=== PATIENT | male | born 1955 | race Asian ===

== ENCOUNTER 2021-05-21 01:10 | Inpatient (IN) | payer MEDICAID ==
[~2021-05-21] VITALS: Ht 168.9 cm; Wt 68.1 kg
[2021-05-21 02:44] LABS: BASOPHILS % (AUTO) 0.6 % (0.0-2.0); EOSINOPHILS % (AUTO) 0.7 % (1.0-6.0); HEMATOCRIT 41.1 % (41-53); HEMOGLOBIN 13.9 g/dL (13.5-17.5); LYMPHOCYTES # (AUTO) 1.5 K/uL (1.0-4.8); LYMPHOCYTES % (AUTO) 14.7 % (22.0-44.0); MEAN CORPUSCULAR HEMOGLOBIN 31.2 pg (26.0-34.0); MEAN CORPUSCULAR HGB CONC 33.9 G/dL (31.0-37.0); MEAN CORPUSCULAR VOLUME 92 fL (80-100); MONOCYTES # (AUTO) 0.5 K/uL (0.1-1.0); MONOCYTES % (AUTO) 4.9 % (2.0-9.0); NEUTROPHILS # (AUTO) 8.1 K/uL (1.8-7.7); NEUTROPHILS % (AUTO) 79.1 % (40.0-70.0); PLATELET COUNT (AUTO) 108 K/uL (150-450); RED BLOOD CELL COUNT(AUTO) 4.46 MIL/uL (4.50-5.90); RED CELL DISTRIBUTION WIDTH 14.3 % (11.5-14.5)
[2021-05-21 03:00] LABS: ANION GAP 11 mmol/L (8-16); CARBON DIOXIDE 25 mmol/L (22-29); CHLORIDE 96 mmol/L (98-107); CREATININE 0.53 mg/dL (0.60-1.30); GLUCOSE,RANDOM 137 mg/dL (70-110); POTASSIUM 5.5 mmol/L (3.5-5.1); SODIUM SERUM 132 mmol/L (136-145); UREA NITROGEN, BLOOD 16 mg/dL (7-18)
[2021-05-21 03:06] LABS: ALANINE AMINOTRANSFERASE 79 U/L (12-78); ALKALINE PHOSPHATASE 121 U/L (46-116); ASPARTATE AMINOTRANSFERASE 92 U/L (15-37); BILIRUBIN,TOTAL 1.4 mg/dL (0.1-1.0); TOTAL PROTEIN, SERUM 8.4 g/dL (6.4-8.2)
[2021-05-21] MEDS ORDERED: SODIUM CHLORIDE 0.9% 1,000 ML IV ONE ×2 (03:15→05:15)
[2021-05-21] MEDS ORDERED: ONDANSETRON HCL 4 MG/2 ML VIAL IVP ONE ×2 (03:15→22:21)
[2021-05-21] MEDS ORDERED: MORPHINE SULFATE 4 MG/ML SYRINGE IVP ONE (03:15)
[2021-05-21 03:18] LABS: GLOMERULAR FILTR. RATE CALC > 60 mL/min (>60)
[2021-05-21 03:31] LABS: ALBUMIN 3.3 g/dL (3.4-5.0); LIPASE 361 U/L (73-393)
[2021-05-21] MEDS ORDERED: SODIUM CHLORIDE 0.9% 100 ML ONE (04:03)
[2021-05-21] MEDS ORDERED: IOHEXOL 350 MG/ML 100 ML VIAL ONE (04:03)
[2021-05-21] MEDS ORDERED: PIPERACILLIN/TAZO 3.375 GM/D5W 50 ML IV ONE (05:04)
[2021-05-21] MEDS ORDERED: ONDANSETRON HCL 4 MG/2 ML VIAL IVP PRN ×2 (05:15→10:15)
[2021-05-21] MEDS ORDERED: 0.9% SODIUM CHLORIDE 10 ML SYRINGE IVP PRN (05:15)
[2021-05-21] MEDS ORDERED: HYDROmorphone 2 MG/ML VIAL IVP ONE (05:15)
[2021-05-21] MEDS ORDERED: HYDROmorphone 2 MG/ML VIAL IVP PRN ×2 (05:15→11:45)
[2021-05-21 05:33] LABS: APPEARANCE,URINE CLEAR (CLEAR); BILIRUBIN,URINE NEGATIVE (NEGATIVE); GLUCOSE, URINE (UA) NEGATIVE (NEGATIVE); KETONES,URINE NEGATIVE (NEGATIVE); LEUKOCYTE ESTERASE ,URINE NEGATIVE (NEGATIVE); NITRATE,URINE NEGATIVE (NEGATIVE); OCCULT BLOOD,URINE NEGATIVE (NEGATIVE); PROTEIN,URINE NEGATIVE (NEGATIVE); UROBILINOGEN,URINE 0.2 mg/dL (<=1.0)
[2021-05-21 05:35] LABS: BACTERIA,URINE Rare /HPF (None Seen); RBC,URINE None Seen /HPF (0-2); WBC,URINE 0-2 /HPF (0-5)
[2021-05-21] MEDS ORDERED: PIPERACILLIN/TAZO 3.375 GM/D5W 50 ML IV SCH (06:00)
[2021-05-21] MEDS ORDERED: HYDROCHLOROTHIAZIDE 25 MG TABLET PO ONE (07:00)
[2021-05-21] MEDS ORDERED: ALLO-45 PO (08:45)
[2021-05-21] MEDS ORDERED: ATOR10TA84 PO (08:45)
[2021-05-21] MEDS ORDERED: TELM1TAB31 PO (08:45)
[2021-05-21] MEDS ORDERED: VITA-328 PO (08:45)
[2021-05-21] MEDS ORDERED: LOSA-30 PO (08:45)
[2021-05-21] MEDS ORDERED: COLC0.6T73 PO (08:45)
[2021-05-21 08:52] LABS: COVID AG,FIA SOURCE NASOPHARYNGEAL
[2021-05-21] MEDS ORDERED: MORPHINE SULFATE 2 MG/ML SYRINGE IVP PRN (10:15)
[2021-05-21] MEDS ORDERED: LABETALOL HCL 5 MG/ML 20 ML VIAL IVP PRN (10:15)
[2021-05-21] MEDS ORDERED: MAGNESIUM HYDROXIDE SUSPENSION 30 ML UDCUP PO PRN (10:15)
[2021-05-21] MEDS ORDERED: ACETAMINOPHEN 325 MG TABLET PO PRN (10:15)
[2021-05-21] MEDS ORDERED: ZOLPIDEM TARTRATE 5 MG TABLET PO PRN (10:15)
[2021-05-21] MEDS ORDERED: BISACODYL 10 MG RECTAL RECTAL SUPPOSITORY PR PRN (10:15)
[2021-05-21] MEDS ORDERED: HYDROCODONE/ACETAMINOPHEN 5-325 MG TABLET PO PRN (10:15)
[2021-05-21] MEDS ORDERED: IOHEXOL 240 MG/ML 20 ML VIAL ONE (10:47)
[2021-05-21] MEDS ORDERED: BUPIVACAINE 0.25%/EPI 1:200,000/PF 10 ML VIAL ONE ×2 (10:48→10:53)
[2021-05-21] MEDS ORDERED: BUPIVACAINE 0.25%/EPI 1:200,000/PF 30 ML VIAL IM ONE (11:15)
[2021-05-21] MEDS ORDERED: FentaNYL CITRATE PF 100 MCG/2 ML VIAL IVP PRN (11:45)
[2021-05-21] MEDS ORDERED: SUGAMMADEX SODIUM 200 MG/2 ML VIAL IVP ONE (11:53)
[2021-05-21] MEDS: PIPERACILLIN/TAZO 3.375 GM/D5W 50 ML IV SCH ×2 (12:00→23:36)
[2021-05-21] MEDS ORDERED: SODIUM CHLORIDE 0.9% 1,000 ML ONE ×2 (12:02→13:04)
[2021-05-21] MEDS ORDERED: OxyCODONE HCL 5 MG IR TABLET PO PRN (13:30)
[2021-05-21 15:06] VITALS: BP 163/89
[2021-05-21] MEDS ORDERED: HEPARIN SODIUM,PORCINE 5,000 UNITS/ML VIAL SQ SCH (16:00)
[2021-05-21] MEDS: ACETAMINOPHEN 500 MG TABLET PO SCH ×2 (16:06→21:33)
[2021-05-21] MEDS: OXYGEN THERAPY IH SCH (20:00)
[2021-05-21 20:37] VITALS: BP 129/69
[2021-05-21] MEDS: DOCUSATE SODIUM 100 MG CAPSULE PO SCH (21:32)
[2021-05-21] MEDS ORDERED: DEXAMETHASONE SOD PHOS 4 MG/ML VIAL IVP ONE (22:21)
[2021-05-21] MEDS ORDERED: LIDOCAINE/PF 2% 5 ML VIAL IM ONE (22:21)
[2021-05-21] MEDS ORDERED: PROPOFOL 1% 20 ML VIAL IVP ONE (22:21)
[2021-05-21] MEDS ORDERED: ROCURONIUM BROMIDE 10 MG/ML 5 ML VIAL IVP ONE (22:21)
[2021-05-22 05:01] VITALS: BP 147/89
[2021-05-22] MEDS: PIPERACILLIN/TAZO 3.375 GM/D5W 50 ML IV SCH ×3 (05:33→18:29)
[2021-05-22] MEDS ORDERED: INFLUENZA VIRUS VACCINE QVS 2021-22 (6MO+)/PF 60 MCG/0.5 ML SYRINGE IM. ONE (05:45)
[2021-05-22 07:28] VITALS: BP 126/71
[2021-05-22] MEDS: OXYGEN THERAPY IH SCH ×2 (08:00→20:00)
[2021-05-22 08:07] LABS: ALANINE AMINOTRANSFERASE 144 U/L (12-78); ALBUMIN 2.7 g/dL (3.4-5.0); ALKALINE PHOSPHATASE 101 U/L (46-116); ANION GAP 6 mmol/L (8-16); ASPARTATE AMINOTRANSFERASE 97 U/L (15-37); BILIRUBIN,TOTAL 2.9 mg/dL (0.1-1.0); CALCIUM, TOTAL 7.8 mg/dL (8.8-10.5); CARBON DIOXIDE 26 mmol/L (22-29); CHLORIDE 104 mmol/L (98-107); CREATININE 1.16 mg/dL (0.60-1.30); GLOMERULAR FILTR. RATE CALC > 60 mL/min (>60); GLUCOSE,RANDOM 121 mg/dL (70-110); POTASSIUM 3.5 mmol/L (3.5-5.1); SODIUM SERUM 136 mmol/L (136-145); TOTAL PROTEIN, SERUM 6.7 g/dL (6.4-8.2); UREA NITROGEN, BLOOD 14 mg/dL (7-18)
[2021-05-22] MEDS: ALLOPURINOL 300 MG TABLET PO SCH (08:49)
[2021-05-22] MEDS: DOCUSATE SODIUM 100 MG CAPSULE PO SCH ×2 (08:49→20:07)
[2021-05-22] MEDS: TELMISARTAN 40 MG TABLET PO SCH (08:49)
[2021-05-22] MEDS: PANTOPRAZOLE SODIUM 40 MG DR TABLET PO SCH (08:50)
[2021-05-22] MEDS: ACETAMINOPHEN 500 MG TABLET PO SCH ×3 (08:50→20:08)
[2021-05-22] MEDS: HYDROCHLOROTHIAZIDE 25 MG TABLET PO SCH (08:50)
[2021-05-22] MEDS: ATORVASTATIN CALCIUM 10 MG TABLET PO SCH (08:50)
[2021-05-22] MEDS ORDERED: [UNRECOGNIZED DRUG - OTHER] PO SCH (09:00)
[2021-05-22 09:13] LABS: BASOPHILS % (AUTO) 0.2 % (0.0-2.0); EOSINOPHILS % (AUTO) 0 % (1.0-6.0); HEMATOCRIT 38.1 % (41-53); HEMOGLOBIN 12.9 g/dL (13.5-17.5); LYMPHOCYTES # (AUTO) 1.8 K/uL (1.0-4.8); LYMPHOCYTES % (AUTO) 13.4 % (22.0-44.0); MEAN CORPUSCULAR HEMOGLOBIN 30.8 pg (26.0-34.0); MEAN CORPUSCULAR HGB CONC 33.9 G/dL (31.0-37.0); MEAN CORPUSCULAR VOLUME 91 fL (80-100); MONOCYTES # (AUTO) 0.8 K/uL (0.1-1.0); MONOCYTES % (AUTO) 5.9 % (2.0-9.0); NEUTROPHILS % (AUTO) 80.5 % (40.0-70.0); PLATELET COUNT (AUTO) 216 K/uL (150-450); RED BLOOD CELL COUNT(AUTO) 4.19 MIL/uL (4.50-5.90); RED CELL DISTRIBUTION WIDTH 14.1 % (11.5-14.5)
[2021-05-22] MEDS ORDERED: SODIUM CHLORIDE 0.9% 250 ML IV ONE (11:16)
[2021-05-22 16:00] VITALS: BP 157/64
[2021-05-22 21:12] VITALS: BP 141/77
[2021-05-23] MEDS: PIPERACILLIN/TAZO 3.375 GM/D5W 50 ML IV SCH ×5 (00:17→23:05)
[2021-05-23 05:36] VITALS: BP 142/78
[2021-05-23 06:53] LABS: BASOPHILS % (AUTO) 0.5 % (0.0-2.0); EOSINOPHILS % (AUTO) 1.3 % (1.0-6.0); HEMATOCRIT 35.9 % (41-53); HEMOGLOBIN 12.4 g/dL (13.5-17.5); LYMPHOCYTES # (AUTO) 1.4 K/uL (1.0-4.8); LYMPHOCYTES % (AUTO) 11.5 % (22.0-44.0); MEAN CORPUSCULAR HEMOGLOBIN 31.2 pg (26.0-34.0); MEAN CORPUSCULAR HGB CONC 34.5 G/dL (31.0-37.0); MEAN CORPUSCULAR VOLUME 91 fL (80-100); MONOCYTES # (AUTO) 0.9 K/uL (0.1-1.0); MONOCYTES % (AUTO) 7.2 % (2.0-9.0); NEUTROPHILS # (AUTO) 9.6 K/uL (1.8-7.7); NEUTROPHILS % (AUTO) 79.5 % (40.0-70.0); PLATELET COUNT (AUTO) 191 K/uL (150-450); RED BLOOD CELL COUNT(AUTO) 3.96 MIL/uL (4.50-5.90); RED CELL DISTRIBUTION WIDTH 14.1 % (11.5-14.5)
[2021-05-23 07:17] LABS: ALANINE AMINOTRANSFERASE 108 U/L (12-78); ALBUMIN 2.5 g/dL (3.4-5.0); ALKALINE PHOSPHATASE 112 U/L (46-116); ANION GAP 4 mmol/L (8-16); ASPARTATE AMINOTRANSFERASE 60 U/L (15-37); BILIRUBIN,TOTAL 3.9 mg/dL (0.1-1.0); CALCIUM, TOTAL 8.1 mg/dL (8.8-10.5); CARBON DIOXIDE 30 mmol/L (22-29); CHLORIDE 104 mmol/L (98-107); CREATININE 1.11 mg/dL (0.60-1.30); GLOMERULAR FILTR. RATE CALC > 60 mL/min (>60); GLUCOSE,RANDOM 112 mg/dL (70-110); POTASSIUM 3.2 mmol/L (3.5-5.1); SODIUM SERUM 138 mmol/L (136-145); TOTAL PROTEIN, SERUM 6.8 g/dL (6.4-8.2); UREA NITROGEN, BLOOD 11 mg/dL (7-18)
[2021-05-23] MEDS: OXYGEN THERAPY IH SCH ×2 (08:00→20:00)
[2021-05-23 09:07] VITALS: BP 145/86
[2021-05-23] MEDS: ATORVASTATIN CALCIUM 10 MG TABLET PO SCH (09:42)
[2021-05-23] MEDS: HYDROCHLOROTHIAZIDE 25 MG TABLET PO SCH (09:42)
[2021-05-23] MEDS: PANTOPRAZOLE SODIUM 40 MG DR TABLET PO SCH (09:42)
[2021-05-23] MEDS: ALLOPURINOL 300 MG TABLET PO SCH (09:42)
[2021-05-23] MEDS: TELMISARTAN 40 MG TABLET PO SCH (09:42)
[2021-05-23] MEDS: ACETAMINOPHEN 500 MG TABLET PO SCH ×3 (09:42→20:40)
[2021-05-23] MEDS: DOCUSATE SODIUM 100 MG CAPSULE PO SCH ×2 (09:42→20:40)
[2021-05-23] MEDS ORDERED: POTASSIUM CHL 10 MEQ/WATER 50 ML IV PRN (10:45)
[2021-05-23] MEDS: POTASSIUM CHLORIDE 20 MEQ ER TABLET PO PRN ×3 (11:12→23:45)
[2021-05-23] MEDS ORDERED: FentaNYL CITRATE PF 100 MCG/2 ML VIAL IVP ONE (12:00)
[2021-05-23] MEDS ORDERED: MIDAZOLAM HCL 2 MG/2 ML VIAL IVP ONE (12:00)
[2021-05-23 16:20] VITALS: BP 148/84
[2021-05-23 19:39] VITALS: BP 146/81
[2021-05-24 04:59] VITALS: BP 142/89
[2021-05-24] MEDS: PIPERACILLIN/TAZO 3.375 GM/D5W 50 ML IV SCH ×2 (05:03→12:44)
[2021-05-24 06:37] LABS: BASOPHILS % (AUTO) 0.8 % (0.0-2.0); EOSINOPHILS % (AUTO) 3.3 % (1.0-6.0); HEMATOCRIT 34.4 % (41-53); HEMOGLOBIN 12.1 g/dL (13.5-17.5); LYMPHOCYTES # (AUTO) 1.7 K/uL (1.0-4.8); LYMPHOCYTES % (AUTO) 15.1 % (22.0-44.0); MEAN CORPUSCULAR HEMOGLOBIN 31.6 pg (26.0-34.0); MEAN CORPUSCULAR VOLUME 90 fL (80-100); MONOCYTES # (AUTO) 0.8 K/uL (0.1-1.0); MONOCYTES % (AUTO) 7.5 % (2.0-9.0); NEUTROPHILS # (AUTO) 8.1 K/uL (1.8-7.7); NEUTROPHILS % (AUTO) 73.3 % (40.0-70.0); PLATELET COUNT (AUTO) 212 K/uL (150-450); RED BLOOD CELL COUNT(AUTO) 3.81 MIL/uL (4.50-5.90)
[2021-05-24 06:52] LABS: ALANINE AMINOTRANSFERASE 95 U/L (12-78); ALBUMIN 2.4 g/dL (3.4-5.0); ALKALINE PHOSPHATASE 148 U/L (46-116); ANION GAP 9 mmol/L (8-16); ASPARTATE AMINOTRANSFERASE 41 U/L (15-37); CALCIUM, TOTAL 8.5 mg/dL (8.8-10.5); CARBON DIOXIDE 28 mmol/L (22-29); CHLORIDE 104 mmol/L (98-107); CREATININE 1.08 mg/dL (0.60-1.30); GLOMERULAR FILTR. RATE CALC > 60 mL/min (>60); GLUCOSE,RANDOM 109 mg/dL (70-110); SODIUM SERUM 141 mmol/L (136-145); UREA NITROGEN, BLOOD 10 mg/dL (7-18)
[2021-05-24 07:27] VITALS: BP 142/85
[2021-05-24] MEDS: OXYGEN THERAPY IH SCH (08:00)
[2021-05-24] MEDS: ATORVASTATIN CALCIUM 10 MG TABLET PO SCH (08:42)
[2021-05-24] MEDS: PANTOPRAZOLE SODIUM 40 MG DR TABLET PO SCH (08:42)
[2021-05-24] MEDS: HYDROCHLOROTHIAZIDE 25 MG TABLET PO SCH (08:42)
[2021-05-24] MEDS: DOCUSATE SODIUM 100 MG CAPSULE PO SCH (08:43)
[2021-05-24] MEDS: ALLOPURINOL 300 MG TABLET PO SCH (08:43)
[2021-05-24] MEDS: TELMISARTAN 40 MG TABLET PO SCH (08:43)
[2021-05-24] MEDS: ACETAMINOPHEN 500 MG TABLET PO SCH (08:43)
[2021-05-24] MEDS ORDERED: AMOX1TAB16 PO (14:26)
[2021-05-24 15:51] VITALS: BP 145/88
== END 2021-05-24 17:07 | disposition home or self-care (01) | DRG 263 ==
LOC: EMS 01:12 → 6N 15:00
PROVIDERS: ADMIT Internal Medicine; ATTEND Internal Medicine
PROC: 0DNU4ZZ Release Omentum, Percutaneous Endoscopic Approach (ICD-10-PCS; 2021-05-21)
PROC: BF121ZZ Fluoroscopy of Gallbladder using Low Osmolar Contrast (ICD-10-PCS; 2021-05-21)
PROC: 0FT44ZZ Resection of Gallbladder, Percutaneous Endoscopic Approach (ICD-10-PCS; principal; 2021-05-21 11:00)
DX: K80.66 Calculus of gallbladder and bile duct with acute and chronic cholecystitis without obstruction (principal); K82.1 Hydrops of gallbladder; I10 Essential (primary) hypertension; K66.0 Peritoneal adhesions (postprocedural) (postinfection); E87.5 Hyperkalemia; M10.9 Gout, unspecified; E86.0 Dehydration; E78.5 Hyperlipidemia, unspecified; Z20.822 Contact with and (suspected) exposure to COVID-19; Z79.899 Other long term (current) drug therapy
CPT/HCPCS: 71045; 74177; 74181; 76700; 80053; 81001; 82247; 82248; 83690; 84132; 84484; 85025; 88304; 90686; 93005; 99285; J0690; J1100; J1170; J2250; J2270; J2405; J2543; J2704; J3010; J3490; J7030; J7050; Q9966; Q9967; 36415-L1; 36415-TC; G0008; Z7610